=== PATIENT | male | born 1955 | race Caucasian/White ===

== ENCOUNTER 2020-09-24 18:47 | Emergency (ER) | payer OTHER ==
[~2020-09-24] VITALS: Ht 180.3 cm; Wt 65.8 kg
[2020-09-24 20:38] LABS: ABSOLUTE NEUTROPHILS 10.3 thou/uL (1.4-8.2); BASOPHILS 0.6 % (0.0-2.0); EOSINOPHILS 0.2 % (0.0-3.0); HEMATOCRIT 46.7 % (42.0-52.0); HEMOGLOBIN 15.7 gm/dL (14.0-18.0); MCH 30.9 pg (26.0-34.0); MCHC 33.6 g/dL (28.0-37.0); MCV 91.8 fL (80.0-100.0); MONOCYTES 7.2 % (1.0-8.0); PLATELET COUNT 172 thou/uL (150-400); RBC 5.09 mil/uL (4.50-6.00); RDW 13.8 % (10.5-14.5); WBC 13.1 thou/uL (4.0-11.0)
[2020-09-24 20:42] LABS: ANION GAP 13 mmol/L (7-16); BUN 16 mg/dL (7-18); CALCIUM 9.6 mg/dL (8.5-10.1); CHLORIDE 104 mmol/L (98-107); CO2 23 mmol/L (21-32); CREATININE 1.1 mg/dL (0.7-1.3); GLUCOSE 154 mg/dL (74-106); POTASSIUM 3.8 mmol/L (3.5-5.1); SODIUM 140 mmol/L (136-145)
[2020-09-24 20:52] LABS: ALBUMIN 4.3 g/dL (3.4-5.0); LIPASE 69 U/L (73-393); SGOT 30 U/L (15-37); SGPT 50 U/L (16-63); TOTAL BILIRUBIN 2.5 mg/dL (0.2-1.0); TOTAL PROTEIN 8.3 g/dL (6.4-8.2); TROPONIN-I <0.06 ng/mL (<0.06)
[2020-09-24 20:57] LABS: URINE BILIRUBIN NEGATIVE (Negative); URINE BLOOD NEGATIVE (Negative); URINE CLARITY CLEAR; URINE COLOR YELLOW; URINE GLUCOSE-RANDOM* NEGATIVE (Negative); URINE KETONES TRACE (Negative); URINE LEUKOCYTES-REFLEX NEGATIVE (Negative); URINE NITRITE-REFLEX NEGATIVE (Negative); URINE PROTEIN (DIPSTICK) NEGATIVE (Negative); URINE SPECIFIC GRAVITY >= 1.030 (1.005-1.035); URINE UROBILINOGEN 0.2 E.U./dl (0.2-1.0)
[2020-09-24] MEDS ORDERED: ULTRAM 50MG TAB50 MG PO (22:23)
[2020-09-24 22:59] VITALS: BP 136/83
--- NOTE | 2020-09-26 11:03 | EKG ---
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 : 1955 Requested By: Delmer Delacruz Order Number: [id number] MD: Hermelindo Tapia Measurements Intervals [place] Rate: 115 P: 37 NH: 124 QRS: -41 QRSD: 95 T: 99 QT: 322 QTc: 446 Interpretive Statements Sinus tachycardia Left anterior fascicular block Abnormal R-wave progression, late transition Nonspecific repol abnormality, lateral leads No previous ECG available for comparison Electronically Signed On 09-26-2020 11:03:22 CDT by Hermelindo Tapia [email or web address] <ELECTRONICALLY SIGNED> By: Hermelindo Tapia MD 09/26/20 1103 1909 Hermelindo Tapia MD /AARON
== END 2020-09-24 23:00 | disposition home or self-care (01) ==
LOC: ER 18:47
PROVIDERS: Emergency Medicine
DX: S40.012A Contusion of left shoulder, initial encounter (principal); S20.214A Contusion of middle front wall of thorax, initial encounter; E11.9 Type 2 diabetes mellitus without complications; Z88.0 Allergy status to penicillin; V43.52XA Car driver injured in collision with other type car in traffic accident, initial encounter; Y93.89 Activity, other specified; Y92.410 Unspecified street and highway as the place of occurrence of the external cause; Y99.8 Other external cause status

== ENCOUNTER → 2021-06-20 | Outpatient (CLI) | payer OTHER ==
[~2021-06-20] MED LIST: ULTRAM 50MG TAB50 MG PO
== END | disposition home or self-care (01) ==
LOC: MRI 09:02
PROVIDERS: ATTEND Nurse Practitioner
DX: M25.512 Pain in left shoulder (principal); G89.29 Other chronic pain; Z98.890 Other specified postprocedural states